=== PATIENT | female | born 1990 | race Caucasian/White ===

== ENCOUNTER 2022-12-06 18:39 | Outpatient (CLI) | payer MEDICAID | END 2022-12-07 23:59 | disposition critical access hospital (66) | LOC: EMS 18:39 | DX: S61.012A Laceration without foreign body of left thumb without damage to nail, initial encounter (principal); W27.0XXA Contact with workbench tool, initial encounter; Y93.89 Activity, other specified; Y92.009 Unspecified place in unspecified non-institutional (private) residence as the place of occurrence of the external cause | CPT/HCPCS: A0425; A0429 ==

== ENCOUNTER 2022-12-06 19:16 | Emergency (ER) | payer MEDICAID ==
[2022-12-06 19:38] VITALS: BP 118/85
[2022-12-06] MEDS ORDERED: BUFFERED LIDOCAINE 10 ML SYRINGE SUBQ STA (19:39)
--- NOTE | 2022-12-06 19:40 | ED Physician Documentation ---
PD HPI UPPER EXT INJURY - Stated complaint Stated Complaint: L THUMB LAC - Chief complaint Chief Complaint: Laceration - History obtained from History obtained from: Patient (32-year-old right-handed woman who is up-to-date on tetanus excellently got her thumb caught between a small and a splitter and has a laceration there from a blunt force injury. Happened is prior to arrival) PD PAST MEDICAL HISTORY - Allergies Allergies/Adverse Reactions: Allergies Allergy/AdvReac Type Severity Reaction Status Date / Time No Known Drug Allergies Allergy Verified 12/06/22 19:27 PD ED PE NORMAL - Vitals Vital signs reviewed: Yes - General General: Alert and oriented X 3, No acute distress Results - Vitals Vitals: Vital Signs - 24 hr 12/06/22 19:24 Temperature 36.5 C Heart Rate 80 Respiratory 17 Rate Blood Pressure 118/85 H O2 Saturation 95 Oxygen O2 Source Room air - Rads (name of study) Thumb x-ray is unremarkable. Relevant Findings:: Final report received, EMP independent interpretation of test Procedures - Laceration (location) Left thumb Length in cm: 3 Wound type: Linear, Into subcut fat Neurovascular status: Sensory intact, Motor intact Anesthesia: Lidocaine 1%, With bicarb Wound preparation: Hibiclens, Irrigated copiously NS Skin layer closure: Nylon, Interrupted, Size #-0 - enter number (4-0), Sutures - enter # (7) Other: Patient tolerated well, No complications, Neurovascular intact, Tetanus UTD Departure - Departure Disposition: 01 Home, Self Care Clinical Impression: Laceration of left thumb Qualifiers: Encounter type: initial encounter Damage to nail status: without damage Foreign body presence: without foreign body Qualified Code(s): S61.012A - Laceration without foreign body of left thumb without damage to nail, initial encounter Crushing injury of left thumb Qualifiers: Encounter type: initial encounter Qualified Code(s): S67.02XA - Crushing injury of left thumb, initial encounter Condition: Good Record reviewed to determine appropriate education?: Yes Instructions: ED Laceration Hand Comments: Tylenol and/or ibuprofen as needed for pain. He can also take 1 hydrocodone that we gave you every 6 hours for severe pain. Come back for any signs of infection which would include: Redness, swelling, drainage, increased pain, or fevers. You can wash it soap and water. Keep it covered and moist with bacitracin ointment which is available over the counter; avoid neosporin. Follow-up with your physician in About 14 days for suture removal.
[2022-12-06] MEDS ORDERED: HYDROcod/ACET 5/325 Prepack 4 PO STA (20:09)
--- NOTE | 2022-12-06 20:10 | XRAY Report ---
PROCEDURE: Finger(s) LT INDICATIONS: Left thumb injury TECHNIQUE: AP hand, 2 views of the first digit acquired. COMPARISON: None. FINDINGS: Bones: No fractures or dislocations. No suspicious bony lesions. Soft tissues: No radiopaque foreign bodies. No suspicious soft tissue calcifications or masses. IMPRESSION: No acute bony abnormality. Reviewed by: Kenny Monge MD on 12/06/2022 8:09 PM PDT Approved by: Kenny Monge MD on 12/06/2022 8:09 PM PDT Station ID: [id number]
== END 2022-12-06 20:27 | disposition home or self-care (01) ==
LOC: ED 19:16
DX: S61.012A Laceration without foreign body of left thumb without damage to nail, initial encounter (principal); W20.8XXA Other cause of strike by thrown, projected or falling object, initial encounter; Y93.H9 Activity, other involving exterior property and land maintenance, building and construction
CPT/HCPCS: 12002; 99283